=== PATIENT | male | born 1985 | race Caucasian/White ===

== ENCOUNTER 2024-12-23 06:21 | Day surgery (SDC) | payer OTHER, SELFPAY ==
[2024-12-23 07:57] VITALS: BMI 24.7
[2024-12-23 07:59] VITALS: BP 128/69
[2024-12-23] MEDS: NORMOSOL-R/PLASMALYTE-A 1000 IV (08:13)
[2024-12-23 09:30] VITALS: BP 113/66; BP 128/69
[2024-12-23 09:31] VITALS: BP 113/66
[2024-12-23 09:45] VITALS: BP 103/67
[2024-12-23 10:00] VITALS: BP 103/66
[2024-12-23 10:05] VITALS: BP 101/62
== END 2024-12-23 10:37 | disposition home or self-care (01) ==
LOC: SDS 06:21
PROVIDERS: ATTENDING PHYSICIAN Otolaryngology
DX: D10.9 Benign neoplasm of pharynx, unspecified (principal)
CPT/HCPCS: 31536; 88305